=== PATIENT | male | born 1980 | race Caucasian/White ===

== ENCOUNTER 2020-01-24 11:10 | Inpatient (IN) ==
--- NOTE | 2020-01-24 14:14 | ERNOTE ---
Lower Extremity HPI - General Lower Extremities Pain: 2nd toe: right Time Seen by Provider: 01/24/20 13:36 Source: patient Exam Limitations: no limitations - Immun/Allergies/Home Medications Immunizations: IMMUNIZATION HX Immunizations Up to Date Yes History of Influenza Vaccine No Hx Pneumococcal Vaccination No Allergies/Adverse Reactions: Allergies Allergy/AdvReac Type Severity Reaction Status Date / Time povidone-iodine AdvReac Mild burning Verified 01/24/20 11:45 [From Betadine] sensation soap [From Betadine] AdvReac Mild burning Verified 01/24/20 11:45 sensation Home Medications: HOME MEDICATIONS NK 01/24/20 [Last Taken Unknown] - History of Present Illness Narrative: Patient is coming to the ER for an infection on the second toes right foot that has been going on for about a month. He states that about a week ago he went to the [facility] and was admitted for the IV antibiotics for 2 days, left 3 days ago. He denies any fever or chills, he has significant pain in the right foot. He had the first toe off the right foot amputated about a year ago when he developed osteomyelitis after treating a chronic ulcer on the foot. He is a smoker admits to snorting meth as well as heroin to help with pain control as he has chronic pain, he denies injecting any drugs in particular using his foot for injections, he is not aware of any injuries to the foot. Method of Injury: Reports: no apparent injury Loss of Consciousness: Reports: no loss of consciousness Modifying Factors - (Improves): Reports: other - nothing Modifying Factors - (Worsens): Reports: movement Other Injuries: Reports: none Subsequent Symptoms: Denies: sensory loss, numbness Prior Treament: Reports: recently seen, similar symptoms before. Denies: currently on antibiotics Review of Systems - Review of Systems Constitutional: Absent: recent illness, fever, chills ENT: Absent: nose congestion, sore throat Respiratory: Absent: shortness of breath Cardiology: Absent: chest pain Gastrointestinal/Abdominal: Absent: nausea, vomiting, abdominal pain Genitourinary: Present: no symptoms reported Musculoskeletal: Present: See HPI. Absent: back pain Skin: Absent: rash Neurological: Absent: weakness, numbness Medical History (Last Reviewed 01/24/20 @ 17:06 by Paige Guerin MD) History of amputation of toe Cellulitis Chronic pain Necrotizing fasciitis Opioid withdrawal Osteomyelitis Surgical History: Surgical History (Last Reviewed 01/24/20 @ 17:06 by Paige Guerin MD) Hx of appendectomy (Acute) Hx of cholecystectomy (Acute) H/O hernia repair Social History: (Last Updated 01/24/20 @ 11:48 by Kiya Cary RN) Tobacco: Smoking Status: Current every day smoker tobacco type: cigarettes Smoking cigarettes per day: 10 Alcohol: alcohol intake: current alcohol intake frequency: holiday/special occasion Substance Use: substance use type: marijuana, methamphetamine, prescription drug, other details: heroin Physical Exam - Physical Exam General Appearance: Present: wd/wn, alert, no apparent distress Respiratory: Present: no respiratory distress, normal breath sounds, no accessory muscle use, lungs clear Cardiovascular/Chest: Present: regular rate, rhythm, no murmur Extremity Exam: Present: other - right footL 1st toe missing, 2nd toe erythematous and very swollen with ulcer over IPJ dorsally, no active drainage, tender, foot and lower leg +3 edema and redness Neurological Exam: Present: alert, oriented, normal mood/affect, no motor/sensory deficits Skin Exam: Present: normal color, warm/dry Progress - Results and Orders Patient's Lab Results:: I have reviewed the patient's lab results. - Vital Signs Patient's Vital Signs:: I have reviewed the patient's vital signs. Vital Signs: Vital Signs 01/24/20 11:41 01/24/20 11:48 01/24/20 12:45 Temperature 36.4 C Pulse Rate 104 H 85 Respiratory Rate 16 17 Blood Pressure 181/115 H 165/101 H 146/115 H O2 Sat by Pulse Oximetry 97 97 01/24/20 13:47 Temperature Pulse Rate 82 Respiratory Rate 17 Blood Pressure 140/100 H O2 Sat by Pulse Oximetry 97 - Progress/Reassessment Chief Complaint: Cellulitis Progress Note-Subjective: 01/24/20 15:[address] Wilde, admit to medicine, keep NPO after midnight 01/24/20 15:16 discussed with kuldip Zuñiga to admit, start vancomycin and rocepin 2g 01/24/20 16:27 Review chart from [facility], patient has cultures on file which are labeled his urine cultures growing staph aureus and staph epidermidis. staph aureus is sensitive to Rocephin and vancomycin, staph epidermidis sensitive to vancomycin resistance to Rocephin. Patient had stated that he is not a diabetic, the note from [place] mentioned him being a diabetic. Hemoglobin A1c on file at [facility] was 5.8. Patient was COVID testeed there on 01/20 and was negative Departure Clinical Impression: Osteomyelitis of foot Qualifiers: Osteomyelitis type: unspecified type Laterality: right Qualified Code(s): M86.9 - Osteomyelitis, unspecified - Departure Disposition: Still a patient Condition: Stable
[2020-01-24 14:45] LABS: Albumin * 3.4 gm/dl (3.4-5.0); Anion Gap 11.5 mmol/L (6.8-13.8); BUN/Creatinine Ratio 18.5 (9.0-21.6); Bilirubin, Total 0.9 mg/dL (0.0-1.1); Ca. Corrected For Albumin 8.5 mg/dL (8.4-10.2); Calcium * 8.3 mg/dL (7.9-10.9); Carbon Dioxide 26.4 mmol/L (24-32.6); Potassium 3.9 mmol/L (3.4-4.6); Total Protein 6.9 gm/dL (6.2-8.2)
[2020-01-24 15:06] LABS: Hematocrit 40.1 % (42.0-52.0); Hemoglobin 13.5 gm/dL (13.5-18.0); Mean Cell Volume 92.8 fl (78-100); Mean Corpuscular Hemoglobin 31.3 pg (27-31); Mean Corpuscular Hgb Conc 33.7 g/dl (32-36); Neutrophil # 6.5 K/mm3 (1.3-6.0); Neutrophil % 67.5 % (42-75.0); Platelet Count 183 K/mm3 (150-450); Red Blood Count 4.32 M/mm3 (4.7-6.0); Red Cell Distribution Width 13.2 % (11.5-14.0); White Blood Count 9.6 K/mm3 (4.0-10.5)
[2020-01-24] MEDS ORDERED: ACETAMINOPHEN 500 MG TABLET PO PRN (16:16)
[2020-01-24] MEDS ORDERED: ONDANSETRON HCL/PF 2 MG/ML VIAL IV PRN (16:16)
[2020-01-24] MEDS ORDERED: MORPHINE SULFATE 4 MG/ML SYRG IV PRN (16:16)
[2020-01-24] MEDS ORDERED: oxyCODONE HCL/ACETAMINOPHEN 1 TAB TABLET PO PRN (16:16)
[2020-01-24] MEDS ORDERED: VANCOMYCIN/WATER FOR INJ (PEG) 1 GM/200 ML BAG IV SCH ×2 (16:30→19:00)
--- NOTE | 2020-01-24 18:33 | HP ---
Chief Complaint - Chief Complaint Date of Service: 01/24/20 Time of Service: 18:31 History of Present Illness: Patient with past medical history of previous right great toe amputation presents with recurrent osteomyelitis. He was hospitalized at [facility] earlier this week, and reports receiving 2 days of IV antibiotics. He left there approximately 3 days ago because his pain was uncontrolled with Toradol. He has a remote history of IV drug use, admits to occasional relapses. He states this toe has been distorted for quite some time, possibly years. About a month ago, he started noticing some pain and redness, but avoided coming to the hospital due to COVID. He reports his right toe pain is severe, and radiates all the way up to his hip. He has a bit of swelling in his right foot. Work-up in the ED shows he does still have osteomyelitis. He is afebrile, white blood cells are not elevated 9.6, and CRP is mildly elevated at 1.1. Medical History (Last Reviewed 01/24/20 @ 17:46 by Joie Trujillo RN) History of amputation of toe Major depression Cellulitis Chronic pain Necrotizing fasciitis Opioid withdrawal Osteomyelitis Surgical History: Surgical History (Last Reviewed 01/24/20 @ 17:42 by Joie Trujillo RN) Hx of appendectomy (Acute) Hx of cholecystectomy (Acute) Previous back surgery H/O hernia repair Family History: Family History (Last Reviewed 01/24/20 @ 17:46 by Joie Trujillo RN) Sister Breast cancer Depression Mother Breast cancer Depression Grandmother Colon cancer metastasized to liver Social History: (Last Reviewed 01/24/20 @ 17:54 by Joie Trujillo RN) Social History: lives independently: Yes current occupational status: disabled Highest education level completed: GED or equivalent Service: No Tobacco: Smoking Status: Current every day smoker tobacco type: cigarettes Smoking cigarettes per day: 10 Smoking cigarettes per day comment: depends on day and situation quit status: considering quitting Alcohol: alcohol intake: current alcohol intake frequency: holiday/special occasion Substance Use: substance use type: marijuana, heroin, opiates, methamphetamine, prescription drug Dietary Habits: caffeine: Yes Type: carbonated beverages Review Of Systems (GEN) - Review of Systems Generalized/Overall Review: Absent: Fever Respiratory: Present: Cough. Absent: Shortness of Breath - Reports having smoker's cough Cardiac: Present: Edema - Mild. Absent: Chest Pain Abdominal: Present: Abdominal Pain - Intermittent, not present currently. Has a remote history of necrotizing fasciitis of abdomen.. Absent: Vomiting, Diarrhea Genitourinary: Present: No Symptoms Reported Musculoskeletal: Present: Back Pain Skin: Present: Other - Right second toe swollen, with ulcer Immunizations: IMMUNIZATION HX Immunizations Up to Date Yes History of Influenza Vaccine No Hx Pneumococcal Vaccination No Allergies/Adverse Reactions: Allergies Allergy/AdvReac Type Severity Reaction Status Date / Time povidone-iodine AdvReac Mild burning Verified 01/24/20 17:54 [From Betadine] sensation soap [From Betadine] AdvReac Mild burning Verified 01/24/20 17:54 sensation Home Medications: HOME MEDICATIONS NK 01/24/20 [Last Taken Unknown] Exam - Exam Vital Signs: Vital Signs - Last Taken Temp 36.4 C 01/24/20 16:00 Pulse 81 01/24/20 16:00 Resp 18 01/24/20 16:00 BP 138/72 01/24/20 16:00 Pulse Ox 97 01/24/20 16:00 Constitutional: Present: Alert, Cooperative, No distress, Obese Respiratory: Present: normal breath sounds, no respiratory distress Cardiovascular/Chest: Present: regular rate, rhythm Abdomen: Present: soft, nontender, other - Distortion of left side of abdomen, where he reports having previous necrotizing fasciitis Extremity: Present: lower extremity edema - Mild right foot edema. Violaceous discoloration of entire second toe, other - Right foot very tender to palpation Skin Exam: Present: other - 1.5 cm stage II ulcer over IP joint of second toe Appearance: Present: appropriate appearance, appropriate insight Eye contact: Present: cooperative, good eye contact Diagnostic Studies: Abnormal Lab Results 01/24/20 01/24/20 01/24/20 Range/Units 14:10 14:10 14:46 RBC 4.32 L (4.7-6.0) M/mm3 Hct 40.1 L (42.0-52.0) % MCH 31.3 H (27-31) pg Immature Gran # (Auto) 0.04 H (0.000-0.0310) K/mm3 Eosinophils % 3.4 H (0.0-3.0) % Neutrophils # 6.5 H (1.3-6.0) K/mm3 Est GFR (Non-Af Amer) 145 H (60-130) mL/min C-Reactive Prot, Quant 1.1 H (0.0-0.9) mg/dL Laboratory Results WBC 9.6 K/mm3 (4.0-10.5) 01/24/20 14:46 RBC 4.32 M/mm3 (4.7-6.0) L 01/24/20 14:46 Hgb 13.5 gm/dL (13.5-18.0) 01/24/20 14:46 Hct 40.1 % (42.0-52.0) L 01/24/20 14:46 MCV 92.8 fl (78-100) 01/24/20 14:46 MCH 31.3 pg (27-31) H 01/24/20 14:46 MCHC 33.7 g/dl (32-36) 01/24/20 14:46 RDW 13.2 % (11.5-14.0) 01/24/20 14:46 Plt Count 183 K/mm3 (150-450) 01/24/20 14:46 MPV 11.0 fl (8-11.3) 01/24/20 14:46 Immature Gran % (Auto) 0.40 % (0.001-0.429) 01/24/20 14:46 Immature Gran # (Auto) 0.04 K/mm3 (0.000-0.0310) H 01/24/20 14:46 Neutrophils % 67.5 % (42-75.0) 01/24/20 14:46 Lymphocytes % 22.4 % (20-51) 01/24/20 14:46 Monocytes % 5.8 % (0.0-9) 01/24/20 14:46 Eosinophils % 3.4 % (0.0-3.0) H 01/24/20 14:46 Basophils % 0.5 % (0.0-1.0) 01/24/20 14:46 Nucleated RBC % 0.0 k/mm3 (0-1) 01/24/20 14:46 Neutrophils # 6.5 K/mm3 (1.3-6.0) H 01/24/20 14:46 Lymphocytes # 2.15 k/mm3 (1.5-3.5) 01/24/20 14:46 Monocytes # 0.6 k/mm3 (0.0-1.0) 01/24/20 14:46 Eosinophils # 0.3 k/mm3 (0.0-0.7) 01/24/20 14:46 Absolute Basophils 0.1 k/mm3 (0.0-0.1) 01/24/20 14:46 Sodium 139 mmol/L (132-142) 01/24/20 14:10 Plasma Sodium 139 mmol/L (130-142) 01/24/20 14:10 Potassium 3.9 mmol/L (3.4-4.6) 01/24/20 14:10 Chloride 105 mmol/L (97-106) 01/24/20 14:10 Carbon Dioxide 26.4 mmol/L (24-32.6) 01/24/20 14:10 Anion Gap 11.5 mmol/L (6.8-13.8) 01/24/20 14:10 BUN 12 mg/dL (6-23) 01/24/20 14:10 Creatinine 0.65 mg/dL (0.4-1.4) 01/24/20 14:10 Est GFR (Non-Af Amer) 145 mL/min (60-130) H 01/24/20 14:10 BUN/Creatinine Ratio 18.5 (9.0-21.6) 01/24/20 14:10 Random Glucose 97 mg/dL (70-110) 01/24/20 14:10 Lactic Acid, Venous 0.7 mmol/L (0.4-2.0) 01/24/20 13:00 Calcium 8.3 mg/dL (7.9-10.9) 01/24/20 14:10 Calcium Adj for Albumin 8.5 mg/dL (8.4-10.2) 01/24/20 14:10 Total Bilirubin 0.9 mg/dL (0.0-1.1) 01/24/20 14:10 AST 26 U/L (0-48) 01/24/20 14:10 ALT 24 U/L (19-67) 01/24/20 14:10 Alkaline Phosphatase 77 U/L (50-170) 01/24/20 14:10 C-Reactive Prot, Quant 1.1 mg/dL (0.0-0.9) H 01/24/20 14:10 Total Protein 6.9 gm/dL (6.2-8.2) 01/24/20 14:10 Albumin 3.4 gm/dl (3.4-5.0) 01/24/20 14:10 Assessment/Plan - Assessment/Plan (1) Osteomyelitis of foot Assessment: Patient was recently admitted at [facility] for couple of days of IV antibiotics for this second toe osteomyelitis, and left approximately 3 days ago. He presented to our facility today and physical exam and x-ray findings are positive for osteomyelitis. Rocephin have been started, vanc has been ordered, and orthopedic surgeon has been consulted. Possible amputation tomorrow. He is not febrile, WBC is not elevated at 9.6, CRP mildly elevated at 1.1. He is aware we need to be careful with pain management. I agreed to IV dilaudid until he has surgery, then will attempt to switch to oxycodone. Oxycodone has been started, as this will be a longer acting than the Dilaudid. He was swabbed for COVID 01/20, and it was negative. He reports only being around his cousin, with whom he lives, since [place]. Of note, after arriving to his room on the [facility] floor and prior to my assessment, he left the hospital to get something from family member, and called to be let back in. This is a bit odd, and will obtain a UDS in the morning. Problem: Acute Qualifiers: Osteomyelitis type: unspecified type Laterality: right Qualified Code(s): M86.9 - Osteomyelitis, unspecified (2) Hepatitis C Assessment: He reports having a diagnosis of hep C, and has not been treated. Can obtain viral labs and refer to hepatology at follow up visit. Problem: Acute Qualifiers: Viral hepatitis chronicity: chronic (3) History of drug use Assessment: He has largely discontinued his drug use, but admits to having relapses at times. He is interested in getting into a program to help him stay off drugs, or a suboxone program. Will need to investigate if this resource is available close to where he lives. He has a history of chronic back pain, and reports having herniated disks. Briefly discussed the complexity of diagnosing the source of back pain. Problem: Chronic
[2020-01-24] MEDS: HYDROmorphone HCL 1 MG/ML DISP.SYRIN IV PRN ×2 (19:53→23:55)
[2020-01-24] MEDS: VANCOMYCIN/WATER FOR INJ (PEG) 2 GM/400 ML BAG IV SCH (20:17)
[2020-01-24] MEDS: SENNOSIDES/DOCUSATE SODIUM 1 TAB TABLET PO SCH (20:17)
[2020-01-24] MEDS: oxyCODONE HCL 5 MG TABLET PO PRN (22:22)
[2020-01-25] MEDS: VANCOMYCIN/WATER FOR INJ (PEG) 2 GM/400 ML BAG IV SCH ×3 (04:00→21:01)
[2020-01-25] MEDS: oxyCODONE HCL 5 MG TABLET PO PRN ×4 (04:00→20:59)
[2020-01-25] MEDS: HYDROmorphone HCL 1 MG/ML DISP.SYRIN IV PRN ×2 (06:50→10:47)
--- NOTE | 2020-01-25 07:44 | CONS ---
- Reason for consultation (1) Osteomyelitis of foot Date of Service: 01/25/20 HPI - General Narrative: Mr. Chandler is a 39-year-old gentleman with a history of recurrent infections to his right foot. He has a history of drug abuse as well as a history of having an amputation to his right great toe secondary to ongoing infection. He presented to our ER after being discharged from outside hospital with ongoing swelling and pain to his second toe on the right foot. It was found in the emergency department to have a ulceration over the dorsal aspect at the proximal interphalangeal joint with concerns for underlying osteomyelitis on the x-rays. He states he has been treated with antibiotics and wound care for prolonged on the time without any significant improvement. He denies any other areas of concern. Source: patient Exam Limitations: no limitations - History of Present Illness Timing/Duration: 1 week Severity: mild Modifying Factors - (Worsens): Reports: movement Modifying Factors - (Improves): Reports: immobilization, medication Associated Symptoms: denies symptoms Allergies/Adverse Reactions: Allergies povidone-iodine [From Betadine] Adverse Reaction (Mild, Verified 01/24/20 17:54) burning sensation soap [From Betadine] Adverse Reaction (Mild, Verified 01/24/20 17:54) burning sensation Home Medications: Home Medications Medication Instructions Recorded Last Taken NK 01/24/20 Unknown Procedures Detachment at Right 1st Toe, Complete, Open Approach (06/17/16) Medications - Medications Current Medications: Current Medications Hydromorphone HCl (Dilaudid) 0.5 mg IV Q1H PRN PRN Reason: Severe Pain (pain scale 7-10) Stop: 02/23/20 19:20 Last Admin: 01/25/20 06:50 Dose: 0.5 mg Documented by: Ceftriaxone Sodium 2,000 mg/ (Dextrose/Water) 100 mls @ 200 mls/hr IV Q24H JEREMI; Protocol Stop: 02/23/20 16:31 Last Infusion: 01/24/20 19:41 Dose: Infused Documented by: VANCOMYCIN/WATER FOR INJ (PEG) (Vancomycin) 2 gm in 400 mls @ 150 mls/hr IV Q8H JEREMI Stop: 02/23/20 20:01 Last Infusion: 01/25/20 06:45 Dose: Infused Documented by: Oxycodone HCl (Oxycodone) 5 mg PO Q4H PRN PRN Reason: Pain Stop: 02/23/20 19:21 Last Admin: 01/25/20 04:00 Dose: 5 mg Documented by: Senna/Docusate Sodium (Senokot-S) 2 tab PO HS JEREMI Stop: 02/23/20 21:01 Last Admin: 01/24/20 20:17 Dose: 2 tab Documented by: Review of Systems - Review of Systems Narrative: As above Physical Examination - Exam Narrative: Right lower extremity: Healed surgical amputation of the great toe, enlarged swollen red warm second toe with ulceration over the proximal interphalangeal joint, this does not appear to extend beyond the level of the metatarsal phalangeal joint, no plantar or midfoot wounds, minimal sensation, brisk cap refill Vital Signs: Vital Signs - Last Taken Temp 36.5 C 01/25/20 06:39 Pulse 70 01/25/20 06:39 Resp 12 01/25/20 06:39 BP 152/109 H 01/25/20 06:39 Pulse Ox 98 01/25/20 06:39 O2 Oxygen Delivery Method Room Air Constitutional: Present: Alert, Oriented x3 - Results and Findings: Narrative: Radiographs reviewed: Per the report some concern for osteomyelitis over the distal aspect of the proximal phalanx of the second toe Lab/Microbiology results last 24 hrs: Abnormal/Pending Laboratory Last 24 HRS 01/24/20 01/24/20 01/24/20 14:46 14:10 14:10 RBC 4.32 L Hct 40.1 L MCH 31.3 H Immature Gran # (Auto) 0.04 H Eosinophils % 3.4 H Neutrophils # 6.5 H Est GFR (Non-Af Amer) 145 H C-Reactive Prot, Quant 1.1 H - Assessments/Findings (1) Osteomyelitis of foot Diagnosis(s): Plan is for amputation of the second toe. This was reviewed with the patient. Alex today. Risks and recovery were discussed. He should not need prolonged antibiotics after amputation as long as the amputation base is unremarkable. Consent will be obtained. Plan is for surgery today. Problem: Acute Qualifiers: Osteomyelitis type: chronic, with draining sinus Laterality: right Qualified Code(s): M86.471 - Chronic osteomyelitis with draining sinus, right ankle and foot
--- NOTE | 2020-01-25 08:00 | PN ---
Subjective - Date and Time Seen Date: 01/25/20 Time: 07:58 Subjective Narrative: No new issues overnight. He states his foot might be a little less red. He still has significant pain, but he feels like his pain control is about as good as it is probably going to get. Objective - Review of Systems Generalized/Overall Review: Denies: Fever Respiratory: Denies: Shortness of Breath Cardiac: Denies: Chest Pain Abdominal: Denies: Nausea, Vomiting Genitourinary Symptoms: Reports: No Symptoms Reported Skin: Reports: Other - Skin wound right second toe, purple skin discoloration of that toe - Vitals Vitals: Last Vital Signs Temp 36.5 C 01/25/20 06:39 Pulse 70 01/25/20 06:39 Resp 12 01/25/20 06:39 BP 152/109 H 01/25/20 06:39 Pulse Ox 98 01/25/20 06:39 - Abnormal Lab Findings Abnormal Lab Findings: Abnormal Lab Results 01/24/20 01/24/20 01/24/20 Range/Units 14:10 14:10 14:46 RBC 4.32 L (4.7-6.0) M/mm3 Hct 40.1 L (42.0-52.0) % MCH 31.3 H (27-31) pg Immature Gran # (Auto) 0.04 H (0.000-0.0310) K/mm3 Eosinophils % 3.4 H (0.0-3.0) % Neutrophils # 6.5 H (1.3-6.0) K/mm3 Est GFR (Non-Af Amer) 145 H (60-130) mL/min C-Reactive Prot, Quant 1.1 H (0.0-0.9) mg/dL - Exam Constitutional: Present: Alert, Cooperative, Obese Respiratory: Present: normal breath sounds, no respiratory distress Cardiovascular/Chest: Present: regular rate, rhythm Extremity: Present: pedal edema - Trace, right foot, other - 1.5 cm ulcer of right second toe of the ventral surface with violaceous toe discoloration and swelling. Eye contact: Present: cooperative Assessment/Plan - Problems/Diagnosis (1) Osteomyelitis of foot Problem: Acute Qualifiers: Osteomyelitis type: chronic, with draining sinus Laterality: right Qualified Code(s): M86.471 - Chronic osteomyelitis with draining sinus, right ankle and foot Narrative: Patient was recently admitted at [facility] for couple of days of IV antibiotics for this second toe osteomyelitis, and left approximately 3 days prior to admission. he presented to our facility 01/24/20 and physical exam and x-ray findings were positive for osteomyelitis. Today is day 2 of vanc and Rocephin. Orthopedic surgeon has been consulted, and likely amputation today. He is not febrile, WBC is not elevated at 9.6, CRP mildly elevated at 1.1. Using the NSQIP risk calculator, he is below average risk for any surgical complication. He is aware we need to be careful with pain management. Discussed using IV Dilaudid until surgery, then will try to use only oxycodone after. Discussed only using narcotics for a few days after discharge. (2) Hepatitis C Problem: Chronic Qualifiers: Viral hepatitis chronicity: chronic Narrative: He reports having a diagnosis of hep C, and has not been treated. Can obtain viral labs and refer to hepatology at follow up visit. (3) Elevated blood pressure reading Problem: Acute Narrative: His BP has been fluctuation between high and high-normal. Since he is going to surgery today, will not administer an antihypertensive, to avoid hypotension when sedated for surgery. He does not have a diagnosis of hypertension, and his elevated BP could be due to pain. If BP remains elevated throughout his stay, can start a medication. (4) History of drug use Problem: Chronic Narrative: He has largely discontinued his drug use, but admits to having relapses at times. He is interested in getting into a program to help him stay off drugs, or a suboxone program. Will ask case management if this resource is available close to where he lives. He is aware that our goal for pain management after surgery is only a few days of po narcotics. He has a history of chronic back pain, and reports having herniated disks. Briefly discussed the complexity of diagnosing the source of back pain.
--- NOTE | 2020-01-25 08:33 | ANES ---
Anesthesia Pre Procedure Eval Vitals/Labs: Last Vital Signs Temp 36.5 C 01/25/20 06:39 Pulse 70 01/25/20 06:39 Resp 12 01/25/20 06:39 BP 152/109 H 01/25/20 06:39 Pulse Ox 98 01/25/20 06:39 HOME MEDICATIONS NK 01/24/20 [Last Taken Unknown] Allergies/Adverse Reactions: Allergies Allergy/AdvReac Type Severity Reaction Status Date / Time povidone-iodine AdvReac Mild burning Verified 01/24/20 17:54 [From Betadine] sensation soap [From Betadine] AdvReac Mild burning Verified 01/24/20 17:54 sensation - Planned Procedure Planned Procedure: Osteomyelitis Medication List Reviewed:: Yes Allergies Verified: Yes Medical History (Last Reviewed 01/25/20 @ 08:26 by Walt Rivas CRNA) History of amputation of toe Major depression Cellulitis Chronic pain Necrotizing fasciitis Opioid withdrawal Osteomyelitis Surgical History (Last Reviewed 01/25/20 @ 08:26 by Walt Rivas CRNA) Hx of appendectomy (Acute) Hx of cholecystectomy (Acute) Previous back surgery H/O hernia repair Family History (Last Reviewed 01/25/20 @ 08:26 by Walt Rivas CRNA) Sister Breast cancer Depression Mother Breast cancer Depression Grandmother Colon cancer metastasized to liver - Family Anesthesia History Family History:: no untoward family reactions to anesthesia, no familial bleeding tendencies, no family history of clotting disorders, no family history of premature - Airway/Neck/Teeth Within Normal Limits:: Yes Teeth Condition: missing - several front upprer, poor condition Neck Exam: full range of motion Mallampatti Score: 3 Thyromental (T-M) distance: > 6 cm Mandibulo Hyoid distance: > 3 cm - Respiratory Respiratory Physical: rhonchi - light, wheezing - light Smoking Status: Current every day smoker - one ppd Discussed smoking cessation including day of surgery: Yes - last yesterday Sleep Apnea currently treated: No Sleep Apnea by current assessment: No - Cardiovascular Tolerate Activity: Fair Heart Sounds: S1 & S2, Regular - Gastrointestinal NPO since: 2399 - Anesthesia Assessment and Plan ASA Class: PS, II Anesthesia Type Plan: MAC - Iodine allergy, Hx Drug abuse-largely recovered
[2020-01-25 08:41] LABS: Cocaine Ur Negative (NEGATIVE); Urine Barbiturate Negative (NEGATIVE); Urine PCP Negative (NEGATIVE)
[2020-01-25 08:47] LABS: Urine Benzodiazepines Positive (NEGATIVE); Urine Opiates Positive (NEGATIVE); Urine THC Positive (NEGATIVE)
[2020-01-25] MEDS ORDERED: ceFAZolin SODIUM 1 GM VIAL ONE (11:12)
[2020-01-25] MEDS ORDERED: BUPIVACAINE HCL 50 ML VIAL IJ ONE ×2 (11:12→11:50)
[2020-01-25] MEDS ORDERED: LIDOCAINE HCL 50 ML VIAL ONE (11:18)
[2020-01-25] MEDS ORDERED: PROPOFOL VIAL IV ONE (11:18)
[2020-01-25] MEDS ORDERED: fentaNYL CITRATE/PF 50 MCG/ML AMPUL ONE (11:55)
[2020-01-25] MEDS ORDERED: MIDAZOLAM HCL/PF 1 MG/ML VIAL ONE (11:55)
[2020-01-25] MEDS ORDERED: RINGER'S SOLUTION,LACTATED 1,000 ML IV ONE (11:59)
--- NOTE | 2020-01-25 12:26 | OR ---
Operative Report - Dictated Report Narrative: DATE OF PROCEDURE: 01/25/2020 SURGEON: Ap Wilde MD CLINICAL PROJECT MANAGER: ZEHRA Tovar PREOPERATIVE DIAGNOSIS: Chronic ulcer with osteomyelitis right second toe POSTOPERATIVE DIAGNOSIS: Chronic ulcer with osteomyelitis right second toe. OPERATION PERFORMED: Amputation right second toe at the metatarsal phalangeal joint Tourniquet: 15 minutes Esmarch at the calf ANESTHESIA: Digital block. Plus MAC COMPLICATIONS: None. DRAINS: None. SPECIMENS: Tissue for disposal. ESTIMATED BLOOD LOSS: Minimal. RETAINED IMPLANTS: None. INDICATIONS FOR PROCEDURE: Mr. Chandler is a 39-year-old gentleman who has had a longstanding right second toe ulceration. 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 He was admitted to the hospital for planned amputation. Options for treatment were discussed. Based on the fact that he had a draining sinus and signs of osteomyelitis, he elected to proceed with a toe amputation. The risks, benefits, and alternatives were discussed, and he wished to proceed. Consent was obtained. DESCRIPTION OF PROCEDURE: After time-out, the leg was prepped and draped in a standard sterile fashion. A digital block was performed. A tourniquet was then placed on the calf. A fishmouth type incision was made over the base the toe excising all the offending tissue and the toe was amputated at the metatarsal phalangeal joint. The proximal tissues appeared to be healthy. Tourniquet was deflated and there is brisk cap refill. Once it was felt that we had adequately debrided this, the wounds were closed with interrupted nylon. The toe was covered with Xeroform, 4 x 4, soft roll and Coban. A postop shoe was then placed. All sponge, needle and instrument counts were correct prior to closing the wounds.
[2020-01-25] MEDS ORDERED: VANCOMYCIN HCL LEVEL XX ONE (19:30)
[2020-01-25] MEDS: SENNOSIDES/DOCUSATE SODIUM 1 TAB TABLET PO SCH (21:00)
[2020-01-26] MEDS: oxyCODONE HCL 5 MG TABLET PO PRN ×2 (02:49→07:09)
[2020-01-26] MEDS: VANCOMYCIN/WATER FOR INJ (PEG) 2 GM/400 ML BAG IV SCH (04:09)
[2020-01-26] MEDS ORDERED: ceFAZolin SODIUM 1 GM VIAL IV PRN (06:00)
--- NOTE | 2020-01-26 08:33 | DS ---
(1) Osteomyelitis of foot Problem: Acute Qualifiers: Osteomyelitis type: chronic, with draining sinus Laterality: right Qualified Code(s): M86.471 - Chronic osteomyelitis with draining sinus, right ankle and foot (2) Hepatitis C Problem: Chronic Qualifiers: Viral hepatitis chronicity: chronic (3) Elevated blood pressure reading Problem: Acute (4) History of drug use Problem: Chronic Date of Discharge:: 01/26/20 Hospital Course: Patient was recently admitted at [facility] earlier this week for IV antibiotics for second toe osteomyelitis. He left that facility reportedly AMA after approximately 2 days of treatment. He presented to our facility 01/24/20 and physical exam and x-ray findings were positive for osteomyelitis. He received two days of vanc and Rocephin while here. His second toe was amputated by ortho on 01/25/20. This is his second amputation of that foot. His right great toe was amputated a few years ago. He was not febrile, WBC was not elevated at 9.6, CRP mildly elevated at 1.1. Pain was managed with IV dilaudid prior to surgery, and 5 mg oxycodone after surgery, which he used approximately every 6 hours. Will continue 5 days of q4h oxycodone, and encouraged him to space out the medication. His infection was likely entirely removed with surgery, but since he has had difficulty with this wound for several weeks, will DC with 5 days of bactrim for him to take bid. His wound culture from [place] showed s aureus and s dysgalactiae, sensitive to bactrim. Wound instructions: Keep dressings clean, dry, and intact. Walk on heel only in post op shoe, and keep activity limited. He is to follow up with Dr. Wilde , 01/31/20. He reports having a diagnosis of hep C, and has not been treated. Can obtain viral labs and refer to hepatology at follow up visit. His BP fluctuated between high and high-normal. He does not have a diagnosis of hypertension, and his elevated BP could be due to pain. Recommend monitoring BP in the outpatient setting, and starting an antihypertensive if indicated. He has largely discontinued his drug use, but admits to having relapses at times. He is interested in getting into a program to help him stay off drugs, or a suboxone program. He is aware that our goal for pain management after surgery is only a few days of po narcotics. He has a history of chronic back pain, and reports having herniated disks. Briefly discussed the complexity of diagnosing the source of back pain. He does not currently have a PCP, but can establish with me. Procedures Performed: see notes below - Amputation right second toe at the metatarsal phalangeal joint Results and Findings: Pending Mircobiology Results 01/24/20 14:46 Blood Blood Culture - Preliminary NO GROWTH 24 HOURS 01/24/20 13:00 Blood Blood Culture - Preliminary NO GROWTH 24 HOURS Lab Pending Results 01/24/20 13:00: Lactic Acid, Venous 0.7 01/24/20 14:10: Sodium 139, Plasma Sodium 139, Potassium 3.9, Chloride 105, Carbon Dioxide 26.4, Anion Gap 11.5, BUN 12, Creatinine 0.65, Est GFR (Non-Af Amer) 145 H, BUN/Creatinine Ratio 18.5, Random Glucose 97, Calcium 8.3, Calcium Adj for Albumin 8.5, Total Bilirubin 0.9, AST 26, ALT 24, Alkaline Phosphatase 77, Total Protein 6.9, Albumin 3.4 01/24/20 14:10: C-Reactive Prot, Quant 1.1 H 01/24/20 14:46: WBC 9.6, RBC 4.32 L, Hgb 13.5, Hct 40.1 L, MCV 92.8, MCH 31.3 H, MCHC 33.7, RDW 13.2, Plt Count 183, MPV 11.0, Immature Gran % (Auto) 0.40, Immature Gran # (Auto) 0.04 H, Neutrophils % 67.5, Lymphocytes % 22.4, Monocytes % 5.8, Eosinophils % 3.4 H, Basophils % 0.5, Nucleated RBC % 0.0, Neutrophils # 6.5 H, Lymphocytes # 2.15, Monocytes # 0.6, Eosinophils # 0.3, Absolute Basophils 0.1 01/25/20 07:15: Urine Opiates Screen Positive H, Barbiturate Screen Negative, Ur Phencyclidine Scrn Negative, Urine Amphetamine Positive H, U Benzodiazepines Scrn Positive H, Urine Cocaine Screen Negative, Urine Marijuana (THC) Positive H 01/25/20 19:43: Vancomycin 18.4 01/25/20 : Pathology Specimen Spec to path Discharge Location: Home Disposition: Home self-care Condition: Good Discharge Activity: Partial-Weight bearing, Other - weight bear on right heel only in post op shoe. Limit physical activity Discharge Diet: General/regular food Referrals: Ap Wilde MD [Staff Physician] - (Please schedule with him on , January 30.) Daria Marion DO [Staff Physician] - One Week Additional Patient Instructions (free text): Keep dressings clean, dry, and intact. Walk on heel only in post op shoe, and keep activity limited. Prescriptions (Any new or edited meds): Sulfamethoxazole/Trimethoprim [Bactrim Ds] 1 tab PO BID #10 tab Transmission Status: Pending to [facility] #[id number] oxyCODONE HCL [Oxycodone] 5 mg PO Q4H PRN #20 tablet PRN Reason: Pain Transmission Status: Received by [facility] #[id number] Complete Home Medications List: Complete Home Medication List: Sulfamethoxazole/Trimethoprim [Bactrim Ds] 1 tab PO BID #10 tab 01/26/20 oxyCODONE HCL [Oxycodone] 5 mg PO Q4H PRN #20 tablet 01/26/20
[2020-01-26 09:44] VITALS: BP 145/81
== END 2020-01-26 10:00 | disposition home or self-care (01) | DRG 505 ==
LOC: ER 11:10 → MS 16:00
PROVIDERS: ADMIT Family Medicine; ATTEND Family Medicine
CPT/HCPCS: 36415; 73630; 80053; 80202; 80307; 83605; 85025; 86140; 87040; 87081; 88305; 88311; 88888; 99285